=== PATIENT | female | born 1950 | race Caucasian/White ===

== ENCOUNTER 2018-04-21 17:08 | Inpatient (IN) | payer MEDICAID ==
[2018-04-21] MEDS ORDERED: ACETAMINOPHEN SUPPOSITORY 650 MG SUPP RECTAL PRN (17:18)
[2018-04-21] MEDS ORDERED: ONDANSETRON 4 MG/2 ML VIAL IVP PRN (17:18)
[2018-04-21] MEDS: MORPHINE SULFATE (100 MG/2 ML) 100 MG in SODIUM CHLORIDE 0.9% 100 ML IV SCH (18:13)
[2018-04-21] MEDS: IPRATROPIUM-ALBUTEROL 3 ML NEB INHALATION SCH (19:27)
[2018-04-21] MEDS: BUDESONIDE 1 MG/2 ML NEBU INHALATION SCH (19:27)
[2018-04-21] MEDS: SCOPOLAMINE 1.5MG/72HR PATCH TRANSDERM SCH (19:57)
[2018-04-21] MEDS: METOPROLOL TARTRATE 25 MG TAB PO SCH (19:57)
[2018-04-21] MEDS: guaiFENesin 600 MG TABLET.ER PO SCH (19:57)
[2018-04-21] MEDS: DOCUSATE 100 MG CAP PO SCH (19:57)
[2018-04-21] MEDS: NICOTINE 21MG/24HR PATCH TRANSDERM SCH (22:21)
[2018-04-21] MEDS: LORazepam 2 MG/ML INJ IV PRN (23:34)
[2018-04-22] MEDS: IPRATROPIUM-ALBUTEROL 3 ML NEB INHALATION SCH ×6 (00:16→19:51)
[2018-04-22] MEDS: guaiFENesin 600 MG TABLET.ER PO SCH ×3 (07:15→22:23)
[2018-04-22] MEDS: CITALOPRAM HYDROBROMIDE 20 MG TAB PO SCH (07:15)
[2018-04-22] MEDS: predniSONE 10 MG TAB PO SCH (07:16)
[2018-04-22] MEDS: DOCUSATE 100 MG CAP PO SCH ×3 (07:16→22:23)
[2018-04-22] MEDS: METOPROLOL TARTRATE 25 MG TAB PO SCH ×2 (07:16→20:27)
[2018-04-22] MEDS: NICOTINE 21MG/24HR PATCH TRANSDERM SCH (07:17)
[2018-04-22] MEDS: LORazepam 2 MG/ML INJ IV PRN (08:15)
[2018-04-22] MEDS: BUDESONIDE 1 MG/2 ML NEBU INHALATION SCH ×2 (09:01→19:51)
[2018-04-22 11:01] VITALS: BMI 17.7
[2018-04-22 20:27] VITALS: BP 111/56
[2018-04-23] MEDS: MORPHINE SULFATE (100 MG/2 ML) 100 MG in SODIUM CHLORIDE 0.9% 100 ML IV SCH (00:44)
[2018-04-23] MEDS: IPRATROPIUM-ALBUTEROL 3 ML NEB INHALATION SCH ×2 (03:28→07:50)
[2018-04-23] MEDS: BUDESONIDE 1 MG/2 ML NEBU INHALATION SCH (07:50)
[2018-04-23] MEDS: CITALOPRAM HYDROBROMIDE 20 MG TAB PO SCH (07:59)
[2018-04-23] MEDS: METOPROLOL TARTRATE 25 MG TAB PO SCH (07:59)
[2018-04-23] MEDS: DOCUSATE 100 MG CAP PO SCH (07:59)
[2018-04-23] MEDS: guaiFENesin 600 MG TABLET.ER PO SCH (07:59)
[2018-04-23] MEDS: predniSONE 10 MG TAB PO SCH (08:00)
[2018-04-23] MEDS: NICOTINE 21MG/24HR PATCH TRANSDERM SCH (08:00)
[2018-04-23 09:31] VITALS: PULSE 93; RESP 6
[2018-04-24] MEDS: MORPHINE SULFATE (100 MG/2 ML) 100 MG in SODIUM CHLORIDE 0.9% 100 ML IV SCH ×2 (06:44→10:32)
[2018-04-24] MEDS: SCOPOLAMINE 1.5MG/72HR PATCH TRANSDERM SCH (20:28)
--- NOTE | 2018-04-30 20:43 | HP ---
HISTORY AND PHYSICAL HISTORY AND PHYSICAL AND DISCHARGE SUMMARY: DATE PATIENT : 04/24/2018. HOSPITAL COURSE: Patient admitted under respite care for hospice for symptom control, diagnosis end- stage COPD, symptom control for respiratory distress. Patient admitted for the same. The patient succumbed to underlying condition. The patient was managed by [facility]. WAYNE / IRINEO: [id number] /
== END 2018-04-24 23:33 | disposition expired | DRG 951 ==
LOC: 5ONC 17:08
PROVIDERS: ADMIT Hospitalist; ATTEND Hospitalist
DX: Z51.5 Encounter for palliative care (principal); J44.9 Chronic obstructive pulmonary disease, unspecified; R06.03 Acute respiratory distress
CPT/HCPCS: 94640